=== PATIENT | female | born 1960 | race Caucasian/White ===

== ENCOUNTER 2017-07-11 08:58 | Inpatient (IN) | payer OTHER ==
[2017-07-11] VITALS (14 sets, daily range): BP systolic 129–176; BP diastolic 69–93; PULSE 94–123; RESP 12–20; TEMP 98.5–99.9; O2SAT 97–100
[~2017-07-11] VITALS: Ht 170.2 cm; Wt 102.4 kg
[2017-07-11] MEDS ORDERED: OMEG100046 PO (09:26)
[2017-07-11] MEDS ORDERED: LISI40TA PO (09:26)
[2017-07-11] MEDS ORDERED: ASPI81CH CHEW (09:26)
[2017-07-11] MEDS ORDERED: FERR325C PO (09:26)
[2017-07-11] MEDS ORDERED: PRAV40TA2 PO (09:26)
[2017-07-11] MEDS ORDERED: PANTOPRAZOLE INJ 80 MG in SODIUM CHLORIDE 0.9% INJ 35 ML IV ONE (09:29)
[2017-07-11] MEDS ORDERED: SODIUM CHLORIDE 0.9% FLUSH 10 ML FLUSH IVF PRN (09:30)
[2017-07-11 09:54] LABS: AUTOMATED NEUTROPHIL # 4.7 TH/MM3 (1.8-7.7); BASOPHIL % 0.5 % (0.0-2.0); EOSINOPHIL % 0.4 % (0.0-4.0); LYMPH % 23.2 % (9.0-44.0); LYMPHOCYTE # 1.5 TH/MM3 (1.0-4.8); MEAN CELL VOLUME 87.8 FL (80.0-100.0); MEAN CORPUSCULAR HEMOGLOBIN 28.6 PG (27.0-34.0); MEAN CORPUSCULAR HGB CONC 32.6 % (32.0-36.0); MONO % 5.5 % (0.0-8.0); NEUT % 70.4 % (16.0-70.0); PLATELET COUNT 286 TH/MM3 (150-450); RED BLOOD COUNT 2.36 MIL/MM3 (4.00-5.30); RED CELL DISTRIBUTION WIDTH 14.2 % (11.6-17.2); WHITE BLOOD COUNT 6.7 TH/MM3 (4.0-11.0)
[2017-07-11 09:57] LABS: HEMO FLAGS DIFF FINAL
[2017-07-11 09:59] LABS: HEMATOCRIT 20.7 % (35.0-46.0)
--- NOTE | 2017-07-11 10:00 | PD ---
HPI Chief Complaint: Abnormal Results Time Seen by Provider: 09:29 Travel History International Travel<30 days: No Contact w/Intl Traveler<30days: No Traveled to known affect area: No History of Present Illness HPI This is a 56-year-old female who presents today with complaints of weakness and dizziness. The patient is an employee at her [employer]. Reportedly she has been having black tarry stool since Monday. She heme tested this and found it to be positive. The patient's also been dizzy and weak with ambulation. He denies any chest pain, chest pressure. She does report dyspnea on exertion. She has no history of peptic ulcer disease. She has no abdominal pain. There is no bright red blood per rectum. PFSH Past Medical History Cardiovascular Problems: Yes High Cholesterol: Yes Hypertension: Yes Immunizations Current: Yes Tetanus Vaccination: < 5 Years Menopausal: Yes Past Surgical History Surgical History: No Previous Surgery Social History Alcohol Use: Yes (socially ) Tobacco Use: No Substance Use: No Allergies-Medications (Allergen,Severity, Reaction): Coded Allergies: No Known Allergies (Verified Allergy, Unknown, 07/11/17) Reported Meds & Prescriptions Reported Meds & Active Scripts Active Reported Iron (Ferrous Sulfate) 325 Mg Cap 325 Mg PO DAILY Fish Oil 1,000 mg Softgel ([place]-3/Dha/Epa/Fish Oil) 1,000 Mg (120 Mg-180 Mg) Capsule 1,000 Cap PO DAILY Lisinopril 40 Mg Tab 40 Mg PO DAILY Pravastatin 40 Mg Tab 40 Mg PO DAILY Aspirin 81 Mg Chew 81 Mg CHEW DAILY Review of Systems Except as stated in HPI: all other systems reviewed are Neg General / Constitutional: No: Fever, Chills HENT: Positive: Lightheadedness, No: Headaches Cardiovascular: Positive: Tachycardia, No: Chest Pain or Discomfort, Palpitations Respiratory: Positive: Shortness of Breath, No: Cough Gastrointestinal: Positive: Other (melena), No: Nausea (on exertion), Vomiting , Abdominal Pain Genitourinary: No: Frequency, Dysuria Musculoskeletal: Positive: Weakness (generalized), No: Pain ( worse with ambulation.) Neurologic: Positive: Weakness (generalized worse with ambulation), Dizziness, No: Headache, Change in Mentation Physical Exam Narrative GENERAL: Well-nourished, well-developed patient, in no acute distress. She does have a slight pale appearance. SKIN: Focused skin assessment warm/dry. HEAD: Normocephalic/atraumatic. EYES: No scleral icterus. No injection or drainage. NECK: Supple, trachea midline. CARDIOVASCULAR: Tachycardic with a rate in the low 100s. It was 111 on my examination. She does have a 3/6 holosystolic murmur. RESPIRATORY: Breath sounds equal bilaterally. No accessory muscle use. GASTROINTESTINAL: Abdomen soft, non-tender, nondistended. No rebound or guarding. RECTAL EXAM: Deferred as patient he tested her own stool. MUSCULOSKELETAL: No cyanosis, or edema. NEUROLOGICAL: Awake and alert. Cranial nerves II through XII intact. Motor grossly within normal limits. Five out of 5 muscle strength in all muscle groups. Normal speech. Data Data Last Documented VS Vital Signs Date Time Temp Pulse Resp B/P (MAP) Pulse Ox O2 Delivery O2 Flow Rate FiO2 07/11/17 09:37 (103) Room Air 07/11/17 09:13 111 17 100 07/11/17 09:00 98.8 Orders Orders Basic Metabolic Panel (Bmp) (07/11/17 09:29) Complete Blood Count With Diff (07/11/17 09:29) Prothrombin Time / Inr (Pt) (07/11/17:29) Act Partial Throm Time (Ptt) (07/11/17 09:29) Type And Screen (07/11/17 09:29) Red Blood Cells (Rbc) (07/11/17 09:29) Ecg Monitoring (07/11/17 09:29) Iv Access Insert/Monitor (07/11/17:29) Oximetry (07/11/17:29) Sodium Chloride 0.9% Flush (Ns Flush) (07/11/17 09:30) Sodium Chloride 0.9... W/Pantoprazole In (07/11/17 09:29) Sodium Chloride 0.9... W/Pantoprazole In (07/11/17 09:29) Admit Order (Ed Use Only) (07/11/17 10:00) Labs Laboratory Tests Test 07/11/17 09:20 07/11/17 09:35 White Blood Count 6.7 TH/MM3 Red Blood Count 2.36 MIL/MM3 Hemoglobin 6.8 GM/DL Hematocrit 20.7 % Mean Corpuscular Volume 87.8 FL Mean Corpuscular Hemoglobin 28.6 PG Mean Corpuscular Hemoglobin Concent 32.6 % Red Cell Distribution Width 14.2 % Platelet Count 286 TH/MM3 Mean Platelet Volume 8.0 FL Neutrophils (%) (Auto) 70.4 % Lymphocytes (%) (Auto) 23.2 % Monocytes (%) (Auto) 5.5 % Eosinophils (%) (Auto) 0.4 % Basophils (%) (Auto) 0.5 % Neutrophils # (Auto) 4.7 TH/MM3 Lymphocytes # (Auto) 1.5 TH/MM3 Monocytes # (Auto) 0.4 TH/MM3 Eosinophils # (Auto) 0.0 TH/MM3 Basophils # (Auto) 0.0 TH/MM3 CBC Comment DIFF FINAL Differential Comment MDM Medical Decision Making Medical Screen Exam Complete: Yes Emergency Medical Condition: Yes Differential Diagnosis Symptomatic anemia versus metabolic arrangement versus bradycardia Narrative Course 56-year-old female presents with weakness and dyspnea on exertion. The patient reportedly had outpatient labs showed a hemoglobin of 6.6. She was told to come to the hospital for evaluation. Hemoglobin here is 6.8. The patient is symptomatic. She's been typed and crossed for 2 units of blood. Patient also has had tarry melanotic stools since Monday. There is a call out to the [facility] hospitalist. She'll be admitted. She's been placed on a Protonix drip. Diagnosis Primary Impression: Symptomatic anemia Additional Impressions: Melanotic stools Tachycardia Gastrointestinal bleed Admitting Information Admitting Physician Requests: Admit Moncho Anders MD Jul 11, 2017 10:00
[2017-07-11 10:09] LABS: BICARBONATE 25.3 MEQ/L (21.0-32.0); POTASSIUM 3.7 MEQ/L (3.5-5.1)
[2017-07-11] MEDS: PANTOPRAZOLE INJ 80 MG in SODIUM CHLORIDE 0.9% INJ 100 ML IV SCH ×2 (10:10→21:50)
[2017-07-11 10:14] LABS: APTT (PATIENT) 20.5 SEC (24.3-30.1); PROTHROMBIN TIME - PATIENT 10.5 SEC (9.8-11.6)
[2017-07-11] MEDS ORDERED: SODIUM CHLOR 0.9% 1000 ML INJ 1,000 ML IV SCH (10:30)
--- NOTE | 2017-07-11 14:49 | HHI.HP ---
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 No abdomen pain or n/v. She developed sob with exertion and dizziness. She had her hgb checked at her clinic and found to be around 6 and so sent to ED. uses asa 81 mg daily prophylactically and meloxicam daily for about 1 1/2 yrs. Last weekend had about 4 glasses of vodka/cranberry while out with the band. She noticed some heartburn last week. Pt doesn't drink regularly. denies any other nsaid use. No hx gib and had c scope 1 yr ago reportedly nml. In ED hgb 6 and given 2 units blood. Review of Systems Other dizzy sob with exertion black stool Past Family Social History Past Medical History htn hyperlipidemia hx right ankle fx/plates and screws. Reported Medications Iron (Ferrous Sulfate) 325 Mg Cap 325 Mg PO DAILY Fish Oil 1,000 mg Softgel ([place]-3/Dha/Epa/Fish Oil) 1,000 Mg (120 Mg-180 Mg) Capsule 1,000 Cap PO DAILY Lisinopril 40 Mg Tab 40 Mg PO DAILY Pravastatin 40 Mg Tab 40 Mg PO DAILY Aspirin 81 Mg Chew 81 Mg CHEW DAILY Allergies: Coded Allergies: No Known Allergies (Verified Allergy, Unknown, 07/11/17) Family History NC Social History rare etoh no tob Physical Exam Vital Signs heent neg heart reg lung cta abd s/nt ext no edema Vital Signs Date Time Temp Pulse Resp B/P (MAP) Pulse Ox O2 Delivery O2 Flow Rate FiO2 07/11/17 14:01 98.9 102 18 161/78 (105) 100 Room Air 07/11/17 14:00 98.9 102 20 161/78 100 07/11/17 13:08 98.8 99 18 157/73 100 07/11/17 12:50 99.3 100 20 135/78 100 07/11/17 12:11 98.5 100 14 144/81 100 07/11/17 11:44 98.5 101 18 142/69 100 07/11/17 11:25 98.7 103 12 139/75 100 07/11/17 11:23 98.7 103 12 139/75 100 07/11/17 10:29 98.6 103 18 152/71 (98) 100 07/11/17 09:37 (103) Room Air 07/11/17 09:13 111 17 100 Room Air 07/11/17 09:00 98.8 123 16 129/90 (103) 100 Laboratory Laboratory Tests Test 07/11/17 09:20 07/11/17 09:35 Prothrombin Time 10.5 Prothromb Time International Ratio 1.0 Activated Partial Thromboplast Time 20.5 Blood Urea Nitrogen 16 Creatinine 0.80 Random Glucose 119 Calcium Level 9.4 Sodium Level 137 Potassium Level 3.7 Chloride Level 104 Carbon Dioxide Level 25.3 Anion Gap 8 Estimat Glomerular Filtration Rate 74 White Blood Count 6.7 Red Blood Count 2.36 Hemoglobin 6.8 Hematocrit 20.7 Mean Corpuscular Volume 87.8 Mean Corpuscular Hemoglobin 28.6 Mean Corpuscular Hemoglobin Concent 32.6 Red Cell Distribution Width 14.2 Platelet Count 286 Mean Platelet Volume 8.0 Neutrophils (%) (Auto) 70.4 Lymphocytes (%) (Auto) 23.2 Monocytes (%) (Auto) 5.5 Eosinophils (%) (Auto) 0.4 Basophils (%) (Auto) 0.5 Neutrophils # (Auto) 4.7 Lymphocytes # (Auto) 1.5 Monocytes # (Auto) 0.4 Eosinophils # (Auto) 0.0 Basophils # (Auto) 0.0 CBC Comment DIFF FINAL Differential Comment Result Diagram: 07/11/1735 07/11/1720 Caprini VTE Risk Assessment Caprini VTE Risk Assessment: No/Low Risk (score <= 1) Caprini Risk Assessment Model Point Value = 1 Point Value = 2 Point Value = 3 Point Value = 5 Age 41-60 Minor surgery BMI > 25 kg/m2 Swollen legs Varicose veins or History of unexplained or recurrent spontaneous Oral contraceptives or hormone replacement Sepsis (< 1 month) Serious lung disease, including pneumonia (< 1 month) Abnormal pulmonary function Acute myocardial infarction Congestive heart failure (< 1 month) History of inflammatory bowel disease Medical patient at bed rest Age 61-74 Arthroscopic surgery Major open surgery (> 45 min) Laparoscopic surgery (> 45 min) Malignancy Confined to bed (> 72 hours) Immobilizing plaster cast Central venous access Age >= 75 History of VTE Family history of VTE Factor V Leiden Prothrombin [id number] Lupus anticoagulant Anticardiolipin antibodies Elevated serum homocysteine Heparin-induced thrombocytopenia Other congenital or acquired thrombophilia Stroke (< 1 month) Elective arthroplasty Hip, pelvis, or leg fracture Acute spinal cord injury (< 1 month) Prophylaxis Regimen Total Risk Factor Score Risk Level Prophylaxis Regimen 0-1 Low Early ambulation 2 Moderate Order ONE of the following: *Sequential Compression Device (SCD) *Heparin 5000 units SQ BID 3-4 Higher Order ONE of the following medications: *Heparin 5000 units SQ TID *Enoxaparin/Lovenox 40 mg SQ daily (WT < 150 kg, CrCl > 30 mL/min) *Enoxaparin/Lovenox 30 mg SQ daily (WT < 150 kg, CrCl > 10-29 mL/min) *Enoxaparin/Lovenox 30 mg SQ BID (WT < 150 kg, CrCl > 30 mL/min) AND/OR *Sequential Compression Device (SCD) 5 or more Highest Order ONE of the following medications: *Heparin 5000 units SQ TID (Preferred with Epidurals) *Enoxaparin/Lovenox 40 mg SQ daily (WT < 150 kg, CrCl > 30 mL/min) *Enoxaparin/Lovenox 30 mg SQ daily (WT < 150 kg, CrCl > 10-29 mL/min) *Enoxaparin/Lovenox 30 mg SQ BID (WT < 150 kg, CrCl > 30 mL/min) AND *Sequential Compression Device (SCD) Assessment and Plan Problem List: (1) Gastrointestinal bleed ICD Codes: K92.2 - Gastrointestinal hemorrhage, unspecified Status: Acute Plan: Pt with UGIB. melena x 3 days Presents with symptomatic blood loss anemia. HGB 6.8 etoh/asa/meloxicam combination might be cause r/o erosions/ulcers/gastritis, etc Reports nml colonoscopy 1 yr ago s/p 2 units blood iv ppi started npo. ivf consult GI for EGD monitor H/H. (2) Symptomatic anemia ICD Codes: D64.9 - Anemia, unspecified Status: Acute (3) HTN (hypertension) ICD Codes: I10 - Essential (primary) hypertension Status: Chronic Physician Certification 2 Midnight Certification Type: Admission for Inpatient Services Order for Inpatient Services 3The services are ordered in accordance with Medicare regulations or non- Medicare payer requirements, as applicable. In the case of services not specified as inpatient-only, they are appropriately provided as inpatient services in accordance with the 2-midnight benchmark. Estimated LOS (days): 3 3 days is the estimated time the patient will need to remain in the hospital, assuming treatment plan goals are met and no additional complications. Post-Hospital Plan: Home Lele Hansen MD Jul 11, 2017 14:49
[2017-07-11] MEDS ORDERED: ENALAPRILAT 1.25 MG/ML VIAL IV PUSH PRN (15:00)
[2017-07-11] MEDS ORDERED: cloNIDine HCL 0.1 MG TAB PO PRN (15:00)
--- NOTE | 2017-07-11 17:33 | PD.CONS ---
HPI History of Present Illness This is a 56 year old female with HTN, HLD who presented with c/o fatigue and hgb 6.6. SHe also has 4d black tarry stools. Has been using meloxicam daily for 2 years. Denies abd pain, hx ulcers or GIB, red blood in stool, n/v weight loss. Last colonoscopy with Dr Peters and polyp was found and removed. Never had EGD. PFSH Past Medical History HTN HLD Past Surgical History ORIF ankle Coded Allergies: No Known Allergies (Verified Allergy, Unknown, 07/11/17) Family History DM Social History occasional ETOH/social no tobacco or illicit drug use Review of Systems Constitutional: COMPLAINS OF: Fatigue, DENIES: Fever Eyes: DENIES: Blurred vision Ears, nose, mouth, throat: DENIES: Hearing loss Cardiovascular: DENIES: Palpitations Gastrointestinal: COMPLAINS OF: Black stools, DENIES: Abdominal pain, Bloody stools, Constipation, Nausea, Vomiting, Hematemesis Genitourinary: DENIES: Hematuria Musculoskeletal: DENIES: Stiffness Hematologic/lymphatic: DENIES: Bruising Neurologic: DENIES: Abnormal gait Psychiatric: DENIES: Confusion GI Exam Vitals I&O Vital Signs Date Time Temp Pulse Resp B/P (MAP) Pulse Ox O2 Delivery O2 Flow Rate FiO2 07/11/17 16:24 98.9 100 18 175/79 (111) 100 07/11/17 14:01 98.9 102 18 161/78 (105) 100 Room Air 07/11/17 14:00 98.9 102 20 161/78 100 07/11/17 13:08 98.8 99 18 157/73 100 07/11/17 12:50 99.3 100 20 135/78 100 07/11/17 12:11 98.5 100 14 144/81 100 07/11/17 11:44 98.5 101 18 142/69 100 07/11/17 11:25 98.7 103 12 139/75 100 07/11/17 11:23 98.7 103 12 139/75 100 07/11/17 10:29 98.6 103 18 152/71 (98) 100 07/11/17 09:37 (103) Room Air 07/11/17 09:13 111 17 100 Room Air 07/11/17 09:00 98.8 123 16 129/90 (103) 100 I/O 07/10/17 07/10/17 07/10/17 07/11/17 07/11/17 07/11/17 06:59 14:59 22:59 06:59 14:59 22:59 Intake Total 790 ml Balance 790 ml Intake IV Total 35 ml Packed Cells 650 ml Blood Product IV Normal Saline Flush 105 ml # Voids 1 Laboratory Test 07/11/17 09:20 07/11/17 09:35 Prothrombin Time 10.5 SEC Prothromb Time International Ratio 1.0 RATIO Activated Partial Thromboplast Time 20.5 SEC Blood Urea Nitrogen 16 MG/DL Creatinine 0.80 MG/DL Random Glucose 119 MG/DL Calcium Level 9.4 MG/DL Sodium Level 137 MEQ/L Potassium Level 3.7 MEQ/L Chloride Level 104 MEQ/L Carbon Dioxide Level 25.3 MEQ/L Anion Gap 8 MEQ/L Estimat Glomerular Filtration Rate 74 ML/MIN White Blood Count 6.7 TH/MM3 Red Blood Count 2.36 MIL/MM3 Hemoglobin 6.8 GM/DL Hematocrit 20.7 % Mean Corpuscular Volume 87.8 FL Mean Corpuscular Hemoglobin 28.6 PG Mean Corpuscular Hemoglobin Concent 32.6 % Red Cell Distribution Width 14.2 % Platelet Count 286 TH/MM3 Mean Platelet Volume 8.0 FL Neutrophils (%) (Auto) 70.4 % Lymphocytes (%) (Auto) 23.2 % Monocytes (%) (Auto) 5.5 % Eosinophils (%) (Auto) 0.4 % Basophils (%) (Auto) 0.5 % Neutrophils # (Auto) 4.7 TH/MM3 Lymphocytes # (Auto) 1.5 TH/MM3 Monocytes # (Auto) 0.4 TH/MM3 Eosinophils # (Auto) 0.0 TH/MM3 Basophils # (Auto) 0.0 TH/MM3 CBC Comment DIFF FINAL Differential Comment Physical Examination HEENT: PERRL; normocephalic; atraumatic; no jaundice. CHEST: CTA CARDIAC: RRR ABDOMEN: Soft, nondistended, nontender; no hepatosplenomegaly; bowel sounds are present in all four quadrants. EXTREMITIES: No clubbing, cyanosis, or edema. SKIN: Normal; no rash; no jaundice. 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 Assessment and Plan Plan ASSESSMENT - anemia, melena - hgb 6.8 on admission, receiving blood. black tarry stools for 4d. hx prolonged frequent NSAID use. never had EGD, no prior hx ulcer or GIB. last colonoscopy 1y ago and polyp found PLAN - clears - EGD tomorrow - Obtain consent - NPO after midnight - monitor HH - transfuse as needed - continue protonix IV - further recs to follow This pt seen bymars and Dr Major and this note is written on his behalf Audelia Boggs Jul 11, 2017 17:33
[2017-07-12] VITALS (7 sets, daily range): BP systolic 141–173; BP diastolic 72–92; PULSE 84–108; RESP 14–18; TEMP 96.5–98.6; O2SAT 94–98
[2017-07-12 08:09] LABS: BASOPHIL % 0.8 % (0.0-2.0); EOSINOPHIL % 0.9 % (0.0-4.0); HEMATOCRIT 27.5 % (35.0-46.0); HEMO FLAGS DIFF FINAL; LYMPH % 30.3 % (9.0-44.0); LYMPHOCYTE # 1.5 TH/MM3 (1.0-4.8); MEAN CELL VOLUME 87.5 FL (80.0-100.0); MEAN CORPUSCULAR HEMOGLOBIN 29.6 PG (27.0-34.0); MEAN CORPUSCULAR HGB CONC 33.8 % (32.0-36.0); MONO % 8.1 % (0.0-8.0); NEUT % 59.9 % (16.0-70.0); PLATELET COUNT 263 TH/MM3 (150-450); RED BLOOD COUNT 3.14 MIL/MM3 (4.00-5.30); RED CELL DISTRIBUTION WIDTH 14.7 % (11.6-17.2)
--- NOTE | 2017-07-12 08:36 | HHI.PR ---
Subjective Remarks doing well dizziness/boswell better. Objective Vitals heart reg lung cta abd s/nt ext no edema Vital Signs Date Time Temp Pulse Resp B/P (MAP) Pulse Ox O2 Delivery O2 Flow Rate FiO2 07/12/17 04:20 96.5 93 16 141/72 (95) 94 07/12/17 04:03 84 07/12/17 00:20 97.3 93 17 162/85 (110) 96 07/12/17 00:02 108 07/11/17 22:12 94 07/11/17 20:20 99.5 100 17 176/93 (120) 97 07/11/17 17:06 99.9 101 18 173/85 (114) 100 07/11/17 16:24 98.9 100 18 175/79 (111) 100 07/11/17 14:01 98.9 102 18 161/78 (105) 100 Room Air 07/11/17 14:00 98.9 102 20 161/78 100 07/11/17 13:08 98.8 99 18 157/73 100 07/11/17 12:50 99.3 100 20 135/78 100 07/11/17 12:11 98.5 100 14 144/81 100 07/11/17 11:44 98.5 101 18 142/69 100 07/11/17 11:25 98.7 103 12 139/75 100 07/11/17 11:23 98.7 103 12 139/75 100 07/11/17 10:29 98.6 103 18 152/71 (98) 100 07/11/17 09:37 (103) Room Air 07/11/17 09:13 111 17 100 Room Air 07/11/17 09:00 98.8 123 16 129/90 (103) 100 07/12/17 07/12/17 07/13/17 15:00 23:00 07:00 Intake Total 1100 ml Balance 1100 ml IV Total 1100 ml Result Diagram: 07/12/17 0646 07/11/17 0920 A/P Problem List: (1) Gastrointestinal bleed ICD Codes: K92.2 - Gastrointestinal hemorrhage, unspecified Status: Acute Plan: Pt with UGIB. melena x 3 days Presents with symptomatic blood loss anemia. HGB 6.8 etoh/asa/meloxicam combination might be cause r/o erosions/ulcers/gastritis, etc Reports nml colonoscopy 1 yr ago s/p 2 units blood 07/11 ppi egd today d/c when ok with GI (2) Symptomatic anemia ICD Codes: D64.9 - Anemia, unspecified Status: Acute (3) HTN (hypertension) ICD Codes: I10 - Essential (primary) hypertension Status: Chronic Lele Hansen MD Jul 12, 2017 08:36
[2017-07-12 08:42] LABS: BICARBONATE 29.1 MEQ/L (21.0-32.0)
[2017-07-12] MEDS ORDERED: PROPOFOL 200 MG/20 ML AMP IV ONE (13:20)
--- NOTE | 2017-07-12 13:28 | HHI.GIFU ---
Subjective Remarks EGD performed today. Single ulcer in antrum posteriorly, clean base. No risk for more bleeding. OK to discharge. Await biopsy result. Objective Vitals I&O Vital Signs Date Time Temp Pulse Resp B/P (MAP) Pulse Ox O2 Delivery O2 Flow Rate FiO2 07/12/17 08:00 98.2 88 14 166/92 (116) 98 07/12/17 04:20 96.5 93 16 141/72 (95) 94 07/12/17 04:03 84 07/12/17 00:20 97.3 93 17 162/85 (110) 96 07/12/17 00:02 108 07/11/17 22:12 94 07/11/17 20:20 99.5 100 17 176/93 (120) 97 07/11/17 17:06 99.9 101 18 173/85 (114) 100 07/11/17 16:24 98.9 100 18 175/79 (111) 100 07/11/17 14:01 98.9 102 18 161/78 (105) 100 Room Air 07/11/17 14:00 98.9 102 20 161/78 100 I/O 07/11/17 07/11/17 07/11/17 07/12/17 07/12/17 07/12/17 07:00 15:00 23:00 07:00 15:00 23:00 Intake Total 790 ml 480 ml 1300 ml Balance 790 ml 480 ml 1300 ml Intake Oral 480 ml IV Total 35 ml 1100 ml Packed Cells 650 ml Blood Product IV Normal Saline Flush 105 ml Other 200 ml # Voids 1 6 Laboratory Laboratory Tests Test 07/12/17 06:46 White Blood Count 5.0 Red Blood Count 3.14 Hemoglobin 9.3 Hematocrit 27.5 Mean Corpuscular Volume 87.5 Mean Corpuscular Hemoglobin 29.6 Mean Corpuscular Hemoglobin Concent 33.8 Red Cell Distribution Width 14.7 Platelet Count 263 Mean Platelet Volume 8.3 Neutrophils (%) (Auto) 59.9 Lymphocytes (%) (Auto) 30.3 Monocytes (%) (Auto) 8.1 Eosinophils (%) (Auto) 0.9 Basophils (%) (Auto) 0.8 Neutrophils # (Auto) 3.0 Lymphocytes # (Auto) 1.5 Monocytes # (Auto) 0.4 Eosinophils # (Auto) 0.0 Basophils # (Auto) 0.0 CBC Comment DIFF FINAL Differential Comment Blood Urea Nitrogen 10 Creatinine 0.72 Random Glucose 87 Calcium Level 9.1 Sodium Level 142 Potassium Level 4.0 Chloride Level 107 Carbon Dioxide Level 29.1 Anion Gap 6 Estimat Glomerular Filtration Rate 84 Physical Exam HEENT: Pupils round and reactive to light; normocephalic; atraumatic; no jaundice. Throat is clear. NECK: Neck is supple, no JVD, no lymphadenopathy. CHEST: Chest is clear to auscultation and percussion. CARDIAC: Regular rate and rhythm with no murmur gallop or rubs. ABDOMEN: Soft, nondistended, nontender; no hepatosplenomegaly; bowel sounds are present in all four quadrants. EXTREMITIES: No clubbing, cyanosis, or edema. SKIN: Normal; no rash; no jaundice. 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 Assessment and Plan Plan ASSESSMENT - anemia, melena - hgb 6.8 on admission, receiving blood. black tarry stools for 4d. hx prolonged frequent NSAID use. never had EGD, no prior hx ulcer or GIB. last colonoscopy 1y ago and polyp found EGD showed single clean based ulcer. Also erosive gastritis. Biopsy taken for H Pylori PLAN regular diet OK to discharge home today. continue PPI for 6 weeks. Await biopsy result Anand Major MD Jul 12, 2017 13:28
[2017-07-12] MEDS ORDERED: PROT40TA PO (14:08)
--- NOTE | 2017-07-12 14:09 | HHI.DCPOC ---
Discharge Care Plan Diagnosis: (1) Gastritis (2) Gastric ulcer (3) Symptomatic anemia (4) Gastrointestinal bleed (5) HTN (hypertension) Goals to Promote Your Health * To prevent worsening of your condition and complications * To maintain your health at the optimal level Directions to Meet Your Goals Take your medications as prescribed Follow your dietary instruction Follow activity as directed Keep your appointments as scheduled Take your immunizations and boosters as scheduled If your symptoms worsen call your PCP, if no PCP go to Urgent Care Center or Emergency Room Smoking is Dangerous to Your Health. Avoid second hand smoke Call the 24-hour hour crisis hotline for domestic abuse at Lele Hansen MD Jul 12, 2017 14:09
--- NOTE | 2017-07-13 13:02 | EKG ---
Date Performed: 07/12/2017 Time Performed: 11:15:16 PTAGE: 56 years EKG: Sinus rhythm POSSIBLE ANTERIOR MYOCARDIAL INFARCTION , PROBABLY OLD INFERIOR MYOCARDIAL INFARCTION , PROBABLY OLD ABNORMAL ECG NO PREVIOUS TRACING DOCTOR: Romel Smith Interpretating Date/Time 07/13/2017 12:53:37
== END 2017-07-12 15:07 | disposition home or self-care (01) | DRG 379 ==
LOC: NEPC 08:58 → NEDA 10:01 → HOCA 16:52
PROVIDERS: ADMIT Hospitalist; ATTEND Hospitalist
PROC: 30233N1 Transfusion of Nonautologous Red Blood Cells into Peripheral Vein, Percutaneous Approach (ICD-10-PCS; principal; 2017-07-11)
PROC: 0DB68ZX Excision of Stomach, Via Natural or Artificial Opening Endoscopic, Diagnostic (ICD-10-PCS; 2017-07-12)
DX: K92.1 Melena (principal); K25.9 Gastric ulcer, unspecified as acute or chronic, without hemorrhage or perforation; K29.60 Other gastritis without bleeding; D64.89 Other specified anemias; I10 Essential (primary) hypertension; R00.0 Tachycardia, unspecified; Z79.82 Long term (current) use of aspirin; E78.5 Hyperlipidemia, unspecified; Z86.010 Personal history of colon polyps; Z87.81 Personal history of (healed) traumatic fracture
CPT/HCPCS: 36430; 80048; 82948; 85025; 85610; 85730; 86850; 86900; 86901; 86920; 88305; 93005; C9113; J7030; P9016